=== PATIENT | male | born 1960 | race Hispanic/Latino ===

== ENCOUNTER 2018-10-10 15:04 | Inpatient (IN) | payer MEDICARE, OTHER ==
[~2018-10-10] VITALS: Ht 172.7 cm; Wt 66.9 kg
[2018-10-10] MEDS ORDERED: SODIUM CHLORIDE 0.9% 1000ML 1,000 ML IV SCH ×2 (15:15→16:30)
[2018-10-10] MEDS ORDERED: INSULIN REGULAR, HUMAN 100 UNIT/1 ML 3ML VIAL SQ NR (15:30)
[2018-10-10 15:32] LABS: BASOPHILS % 0.2 % (0.0-1.0); EOSINOPHILS # (AUTO) 0.1 (0.0-0.4); EOSINOPHILS % 0.6 % (0.0-6.0); HEMATOCRIT 34.2 % (38.2-49.6); HEMOGLOBIN 11.5 g/dL (14.0-18.0); LYMPHOCYTES % 5.9 % (18.0-39.1); MEAN CORPUSCULAR HEMOGLOBIN 28.7 pg (28-32); MEAN CORPUSCULAR HGB CONC 33.6 g/dL (31-35); MEAN CORPUSCULAR VOLUME 85.3 fL (81-99); MONOCYTES # (AUTO) 0.7 (0.2-0.8); MONOCYTES % 4.3 % (4.4-11.3); NEUTROPHILS # (AUTO) 15.1 (2.1-6.9); NEUTROPHILS % 87.9 % (38.7-80.0); PLATELET COUNT 399 x10e3/uL (140-360); RED BLOOD COUNT 4.01 x10e6/uL (4.3-5.7); RED CELL DISTRIBUTION WIDTH 13.2 % (11.7-14.4)
[2018-10-10 15:49] LABS: ALANINE AMINOTRANSFERASE 10 IU/L (0-55); ALBUMIN/GLOBULIN RATIO 0.7 (0.8-2.0); ALKALINE PHOSPHATASE 127 IU/L (40-150); ANION GAP 16.5 mmol/L (8-16); BLOOD UREA NITROGEN 21 mg/dL (7-26); BUN/CREATININE RATIO 19 (6-25); CALCIUM 8.5 mg/dL (8.4-10.2); CARBON DIOXIDE 22 mmol/L (22-29); CHLORIDE 95 mmol/L (98-107); CREATININE, SERUM 1.12 mg/dL (0.72-1.25); EST GLOMERULAR FILTRATION RATE > 60 ML/MIN (60-); GLUCOSE 399 mg/dL (74-118); POTASSIUM 4.5 mmol/L (3.5-5.1); SODIUM 129 mmol/L (136-145)
[2018-10-10 15:51] LABS: INFLUENZAE A&B ANTIGEN (RAPID) NEGATIVE (NEGATIVE)
[2018-10-10 16:16] LABS: BILIRUBIN,URINE NEGATIVE (NEGATIVE); CLARITY,URINE SL CLOUDY (CLEAR); COLOR,URINE YELLOW (YELLOW); KETONES,URINE NEGATIVE (NEGATIVE); LEUKOCYTE ESTERASE ,URINE NEGATIVE (NEGATIVE); NITRITE,URINE NEGATIVE (NEGATIVE); PROTEIN,URINE DIPSTICK 1+ (NEGATIVE); URINE UROBILINOGEN 0.2 mg/dL (0.2 - 1)
[2018-10-10] MEDS ORDERED: VANCOMYCIN 1GM/NS 250 ML 250 ML IV STA (16:18)
[2018-10-10 16:20] LABS: STREPTOCOCCUS GRP A ANTIGEN NEGATIVE (NEGATIVE)
[2018-10-10 16:26] LABS: BACTERIA,URINE MODERATE /HPF
[2018-10-10 16:27] LABS: EPITHELIAL CELLS,URINE RARE /LPF
--- NOTE | 2018-10-10 16:30 | NUR ---
PT REC'D FROM [facility] FOR FEVER/LEG PAIN. PLACED ON THE MONITOR AND VITALS TAKEN. FAMILY IN ROOM AT [facility]
[2018-10-10] MEDS ORDERED: DEXTROSE 50% SYRINGE 50 ML IV PRN (16:45)
[2018-10-10] MEDS: PIPER-TAZ 3.375 GM 50 ML IV NR ×2 (16:50→16:51)
[2018-10-10] MEDS: PIPER-TAZ 3.375 GM 50 ML IV SCH (16:50)
[2018-10-10] MEDS: INSULIN REGULAR, HUMAN 100 UNIT/1 ML 3ML VIAL SQ SCH (16:50)
--- NOTE | 2018-10-10 16:50 | NUR ---
MEDS GIVEN PER DR'S ORDERS AND PT HAS TOLERATED WELL
--- NOTE | 2018-10-10 16:55 | Diagnostic Imaging Report ---
EXAM: CHEST SINGLE (PORTABLE), AP Portable DATE: 10/10/2018 3:11 PM Time stamp on exam: 4:14 PM INDICATION: Fever COMPARISON: None FINDINGS: LINES/TUBES: None LUNGS: No consolidations or edema. Bibasilar atelectasis. PLEURA: No effusions or pneumothorax. HEART AND MEDIASTINUM: Normal size and contour. BONES AND SOFT TISSUES: No acute findings. Degenerative changes of the spine. IMPRESSION: No acute thoracic abnormality. Signed by: Dr. Samy Fan DO on 10/10/2018 4:52 PM
[2018-10-10] MEDS ORDERED: SODIUM CHLORIDE 0.9% 250ML 250 ML ONE (17:10)
[2018-10-10] MEDS: MORPHINE SULFATE INJ 4 MG/ML INJ IV PRN ×2 (17:19→22:02)
[2018-10-10] MEDS: ONDANSETRON HCL INJ 2 MG/ML VIAL IV PRN ×2 (17:19→22:03)
[2018-10-10] MEDS: SODIUM CHLORIDE 0.9% 1000ML 1,000 ML IV SCH (17:19)
--- NOTE | 2018-10-10 17:25 | NUR ---
MEDS GIVEN PER DR'S ORDERS AND PT HAS TOLERATED WELL
--- NOTE | 2018-10-10 19:13 | NUR ---
PT UPDATED ON PENDING ADMIT TO HOSPITAL. FAMILY AT SIDE
--- NOTE | 2018-10-10 20:18 | NUR ---
PT REQUESTING MORE PAIN MEDICATION, BUT NOT QUITE DUE YET.
--- NOTE | 2018-10-10 20:25 | NUR ---
PT REPORTS NO HOME MEDS
--- NOTE | 2018-10-10 20:31 | NUR ---
PT UPDATED ON PENDING ROOM ASSIGNMENT TO [facility]
--- NOTE | 2018-10-10 22:03 | NUR ---
pain medciation given per dr's orders.
--- NOTE | 2018-10-10 22:12 | NUR ---
nurse unavailable for report
--- NOTE | 2018-10-10 22:37 | NUR ---
REPORT CALLED TO SAGAR FOR THIS PT. TO GO TO RM 187
[2018-10-10 23:24] VITALS: BP 147/72
[2018-10-10 23:25] VITALS: BP 147/72
[2018-10-10 23:40] VITALS: BP 147/72
[2018-10-11] MEDS: MORPHINE SULFATE INJ 4 MG/ML INJ IV PRN ×3 (02:18→11:14)
[2018-10-11] MEDS: ONDANSETRON HCL INJ 2 MG/ML VIAL IV PRN ×2 (02:18→06:10)
[2018-10-11] MEDS: SODIUM CHLORIDE 0.9% 1000ML 1,000 ML IV SCH ×2 (02:22→11:02)
[2018-10-11] MEDS: VANCOMYCIN 1GM/NS 250 ML 250 ML IV SCH ×2 (03:38→16:57)
[2018-10-11 04:00] VITALS: BP 128/70
[2018-10-11 04:53] LABS: BASOPHILS # (AUTO) 0.1 (0.0-0.1); BASOPHILS % 0.3 % (0.0-1.0); EOSINOPHILS # (AUTO) 0.2 (0.0-0.4); EOSINOPHILS % 0.9 % (0.0-6.0); HEMOGLOBIN 9.5 g/dL (14.0-18.0); LYMPHOCYTES # (AUTO) 1.5 (1.0-3.2); LYMPHOCYTES % 8.4 % (18.0-39.1); MEAN CORPUSCULAR HEMOGLOBIN 28.1 pg (28-32); MEAN CORPUSCULAR HGB CONC 32.8 g/dL (31-35); MEAN CORPUSCULAR VOLUME 85.8 fL (81-99); MONOCYTES # (AUTO) 1.2 (0.2-0.8); MONOCYTES % 6.6 % (4.4-11.3); NEUTROPHILS # (AUTO) 15.2 (2.1-6.9); NEUTROPHILS % 82.9 % (38.7-80.0); PLATELET COUNT 340 x10e3/uL (140-360); RED BLOOD COUNT 3.38 x10e6/uL (4.3-5.7); RED CELL DISTRIBUTION WIDTH 13.2 % (11.7-14.4)
[2018-10-11 05:15] LABS: BLOOD UREA NITROGEN 16 mg/dL (7-26); BUN/CREATININE RATIO 17 (6-25); CALCIUM 7.7 mg/dL (8.4-10.2); CARBON DIOXIDE 22 mmol/L (22-29); CHLORIDE 101 mmol/L (98-107); CREATININE, SERUM 0.92 mg/dL (0.72-1.25); EST GLOMERULAR FILTRATION RATE > 60 ML/MIN (60-); GLUCOSE 184 mg/dL (74-118); SODIUM 132 mmol/L (136-145)
[2018-10-11] MEDS: PIPER-TAZ 3.375 GM 50 ML IV SCH ×3 (05:30→21:36)
--- NOTE | 2018-10-11 07:02 | NUR ---
Bedside report given to Mary HARMON. Pt is awake in bed, resting comfortably. No signs of acute distress.
[2018-10-11 07:30] VITALS: BP 126/71
[2018-10-11] MEDS: INSULIN REGULAR, HUMAN 100 UNIT/1 ML 3ML VIAL SQ SCH ×4 (07:30→21:36)
[2018-10-11] MEDS ORDERED: SEVOFLURANE INHAL SOLN 250 ML PEN BTL ONE (11:51)
[2018-10-11] MEDS ORDERED: PROPOFOL IV EMULSION 10 MG/ML 20 ML VIAL ONE (11:51)
[2018-10-11] MEDS ORDERED: LIDOCAINE HCL 2% LOCAL INJ 5 ML SDV VIAL INJ ONE (11:51)
[2018-10-11 12:00] VITALS: BP 114/73
--- NOTE | 2018-10-11 12:45 | NUR ---
Pt is alert and oriented x 4. Sister Sheyla Beatty [phone] at bedside. Brother Devan Bhardwaj is additional emergency contact [phone]. Pt lives alone in [place] in a house. Currently staying here with his sister. Pt has crutches that he uses. Pt able to drive. Requires assistance with some ADLs due to having difficulty getting around with crutches. Recently had left BKA 4 months ago. Asking about getting a prosthesis with his insurance. CM gave information to pt on [facility] [facility] and [facility]. Informed him that they are closed on the weekend. Pt and sister also asking about a PCP. Gave them information about [facility]. Sheyla stated she will call on Saturday and get an appointment with them so she can start filling out paperwork for assistance. Goal is for pt to return home on discharge. Family will provide transportation.
[2018-10-11] MEDS ORDERED: DEXTROSE 50% SYRINGE 50 ML IV PRN (14:15)
[2018-10-11] MEDS ORDERED: ACETAMINOPHEN 325 MG TAB PO PRN (14:15)
[2018-10-11] MEDS ORDERED: HYDROCODONE/APAP 5MG-325MG TAB PO PRN (14:15)
--- NOTE | 2018-10-11 14:16 | NUR ---
Dr. Farmer called for ID consult by RAMÓN Schmitz and she spoke to Edie.
[2018-10-11] MEDS: MORPHINE SULFATE 2 MG/ML SYR IV PRN (15:30)
--- NOTE | 2018-10-11 15:55 | History and Physical ---
DATE OF SERVICE: October 11, 2018 CHIEF COMPLAINT: Right buttock abscess. HPI: This is a 58-year-old male with known history of type 2 diabetes uncontrolled, left BKA, who is very active, who comes in with complaints of right buttock pain that was a collecting abscess. Patient reports it has been ongoing for the last 3 or 4 days. He has had history of abscesses in the past. He also reports having subjective fevers at home. Denies any chest pain, palpitation, nausea, or vomiting. Patient already had a status post incision and drainage that was performed today early this morning by general surgery. Patient seen and evaluated at bedside, currently doing well with no other complaints. REVIEW OF SYSTEMS PERTINENT POSITIVE: Right buttock abscess with pain. PERTINENT NEGATIVE: Denies any chest pain, palpitation, nausea, vomiting, diarrhea, dysuria, hematuria, frequency, urgency, lightheadedness, dizziness, abdominal pain, headache, shortness of breath, cough, congestion, fever, or any other complaints. The rest of the 14-point review of systems are reviewed with the patient and are negative. ALLERGIES: SULFA. HOME MEDICATIONS: Currently none. PAST MEDICAL HISTORY: Type 2 diabetes, uncontrolled; left BKA; medical noncompliance. PAST SURGICAL HISTORY: Left BKA. PAST FAMILY HISTORY: No reports of CAD. Father had hypertension and diabetes. SOCIAL HISTORY: No drugs. No alcohol. Does not smoke. Good social support. VITAL SIGNS: Temperature is 98.6, T-max is 100.4, his pulse is 82, respiratory rate is 18, blood pressure is 104/66, pulse ox 99%, and he is on nasal cannula. LAB FINDINGS: Show white count is 18.2, hemoglobin 9.5, hematocrit is 29, his platelets are 340. Chemistries; sodium 132, potassium 4, chloride 101, bicarb 22, anion gap of 13, BUN 16, creatinine is 0.92, glucose is 186, calcium is 7.7, albumin was 3. LFTs were normal. Urinalysis concerning for underlying UTI. Influenza; negative group B strep, group A strep was negative. MICROBIOLOGY: Blood culture is pending. Throat cultures was normal silvana. Urine cultures, no growth and wound culture of the right buttock is pending. IMAGING STUDIES: Chest x-ray found to be negative. PHYSICAL EXAMINATION GENERAL: In no acute distress, alert and oriented x3, cooperative on examination. HEENT: Head: Normocephalic, atraumatic. Eyes: Pupils are equal, round and reactive to light bilaterally. Extraocular movements are intact bilaterally. NECK: Supple with good range of motion. THROAT: No evidence of any erythema or exudate in the posterior pharynx. Has poor dentition. PULMONARY: Clear to auscultation bilaterally. No wheezes, no rales, no rhonchi, no crackles appreciated. CARDIOVASCULAR: Positive S1, S2. No murmurs, rubs, or gallops appreciated. ABDOMEN: Soft, nondistended, nontender to palpation. Bowel sounds present. MUSCULOSKELETAL: Strength is 5/5 throughout. No evidence of any musculoskeletal deficit on examination. No weakness appreciated. NEUROLOGIC: Cranial nerves II through XII are grossly intact. No evidence of any neurological deficit on exam. SKIN: Intact. Warm to touch. Good cap refill. PSYCHIATRIC: Normal affect and mood. EXTREMITIES: No edema. Good range of motion throughout. IMPRESSION 1. Sepsis due to underlying right buttock abscess, status post incision and drainage. 2. Uncontrolled type 2 diabetes. 3. Left below knee amputation. 4. Medical noncompliance. 5. Medically debilitated. PLAN: Patient has already had status post incision and drainage. It was performed by Dr. Robison, general surgery. Will continue with daily wound packing. Monitor wound culture. Continue with IV antibiotics. ID consulted as well. Will get a.m. labs including A1c, lipid panel, CBC, BMP, and TSH. Continue with insulin sliding scale and Accu-Cheks. Get a hemoglobin A1c. Patient is on Lovenox for DVT prophylaxis. Will continue with same plan of care. Patient verbalized understanding and agrees with plan of care. Job#: [id number] LUZ MARIA
[2018-10-11 16:00] VITALS: BP 127/80
[2018-10-11] MEDS: ENOXAPARIN SOD INJ 40 MG/0.4 ML SYR SC SCH (16:57)
--- NOTE | 2018-10-11 17:57 | Consultation ---
DATE OF CONSULTATION: REASON FOR CONSULTATION: Abscess to the buttock area. HISTORY OF PRESENT ILLNESS: This patient is a very pleasant male with history of diabetes mellitus, hypertension, comes in with redness and swelling on his right buttock area. There is no specific trauma that he can think of. The patient does have pain. He came to the emergency room where he was admitted, started on vancomycin and Zosyn, underwent I and D earlier today. Infectious disease was consulted. The patient is currently lying in bed comfortably now. Has no complaints. He denies any fever or chills. PAST MEDICAL HISTORY: Diabetes mellitus, hypertension. PAST SURGICAL HISTORY: Denies. ALLERGIES: SULFA DRUGS. SOCIAL HISTORY: There is no smoking, drug abuse, or alcohol abuse. FAMILY HISTORY: Diabetes mellitus. REVIEW OF SYSTEMS GENERAL: At present time, he is doing well. No fever, no chills, although he had fever when he first came. HEENT: Negative. PULMONARY: Negative. CARDIAC: Negative. : Negative. SKIN: There are no other rashes or within normal limits. PHYSICAL EXAMINATION GENERAL: He is currently alert, oriented, does not seem to be in acute distress. VITAL SIGNS: Stable. Currently afebrile. HEENT: Does not appear icteric. NECK: Supple. CHEST: Clear. HEART: S1, S2. No S3 or S4. No murmur. ABDOMEN: Soft. Bowel sounds present. No tenderness. EXTREMITIES: In the buttock area, there is some induration and redness. There is incision, which is packed and no evidence to suggest a bloody drainage. IMPRESSION: Abscess, gram-positive cocci, on vancomycin and Zosyn. Continue for now. We will modify after the sensitivity is available. Further recommendations to follow. Job#: [id number] VAS
[2018-10-11 20:00] VITALS: BP 95/55
[2018-10-11 21:30] VITALS: BP 127/77
[2018-10-12] VITALS (8 sets, daily range): BP systolic 99–167; BP diastolic 52–96
[2018-10-12] MEDS: VANCOMYCIN 1GM/NS 250 ML 250 ML IV SCH ×2 (04:02→16:00)
[2018-10-12 04:39] LABS: BASOPHILS % 0.2 % (0.0-1.0); EOSINOPHILS # (AUTO) 0.3 (0.0-0.4); EOSINOPHILS % 2.5 % (0.0-6.0); HEMATOCRIT 26.6 % (38.2-49.6); HEMOGLOBIN 8.8 g/dL (14.0-18.0); LYMPHOCYTES # (AUTO) 1.7 (1.0-3.2); LYMPHOCYTES % 13.3 % (18.0-39.1); MEAN CORPUSCULAR HEMOGLOBIN 28.3 pg (28-32); MEAN CORPUSCULAR HGB CONC 33.1 g/dL (31-35); MEAN CORPUSCULAR VOLUME 85.5 fL (81-99); MONOCYTES # (AUTO) 0.8 (0.2-0.8); MONOCYTES % 6.7 % (4.4-11.3); NEUTROPHILS # (AUTO) 9.5 (2.1-6.9); NEUTROPHILS % 76.2 % (38.7-80.0); PLATELET COUNT 331 x10e3/uL (140-360); RED BLOOD COUNT 3.11 x10e6/uL (4.3-5.7); RED CELL DISTRIBUTION WIDTH 13.4 % (11.7-14.4)
[2018-10-12 04:58] LABS: ANION GAP 13.9 mmol/L (8-16); BLOOD UREA NITROGEN 16 mg/dL (7-26); BUN/CREATININE RATIO 15 (6-25); CALCIUM 7.6 mg/dL (8.4-10.2); CARBON DIOXIDE 22 mmol/L (22-29); CHLORIDE 103 mmol/L (98-107); CREATININE, SERUM 1.04 mg/dL (0.72-1.25); EST GLOMERULAR FILTRATION RATE > 60 ML/MIN (60-); GLUCOSE 122 mg/dL (74-118); POTASSIUM 3.9 mmol/L (3.5-5.1); SODIUM 135 mmol/L (136-145)
[2018-10-12] MEDS: MORPHINE SULFATE 2 MG/ML SYR IV PRN (05:10)
[2018-10-12 05:14] LABS: CHOL/HDL RATIO 5.3 (3.9-4.7)
[2018-10-12 05:35] LABS: THYROID STIMULATING HORMONE 1.326 uIU/mL (0.350-4.940)
[2018-10-12] MEDS: PIPER-TAZ 3.375 GM 50 ML IV SCH ×3 (06:41→21:59)
[2018-10-12] MEDS: INSULIN REGULAR, HUMAN 100 UNIT/1 ML 3ML VIAL SQ SCH ×4 (08:25→20:43)
--- NOTE | 2018-10-12 08:48 | NUR ---
patient rude and insulting to kitchen staff, states he does not want to eat and they should not deliver any trays all day, kitchen offered multiple choices for breakfast, but patient still refuses to eat, patient very rude and refusing any other offers, informed patient on the importance of nutrition and insulin, patient states "then I dont want my insulin" informed patient I will notify
--- NOTE | 2018-10-12 14:15 | NUR ---
RCD PT FROM IMCU BY WHEEL CHAIR PT IS ALERT AND ORIENTED RESTING ON BED VITALS CHECKED DRESSING CHANGED ON THE RT BUTTOCKS BED LOW AND LOCKED CALL LIGHT IN REACH
--- NOTE | 2018-10-12 15:15 | Progress Note ---
DATE: October 12, 2018 MEDICINE PROGRESS NOTE SUBJECTIVE: Patient is doing with no issues. He refused his insulin this morning because he reports that his food did not taste well and portions were small. LABORATORY FINDINGS: Show white count 12.4, hemoglobin 9.8, hematocrit 26.6, platelets of 331. Sodium was 135, potassium is 3.9, chloride is 103, bicarb is 22, anion gap of 13.8, creatinine is 1, glucose is 119. Hemoglobin A1c is 9.9. Lactic acid normal at 6.9. LDL 56, TSH 4.3. MICROBIOLOGY: Wound cultures shows Staphylococcus aureus. Urine culture negative. Blood culture, no growth today 24 hours. IMAGING STUDIES: None. PHYSICAL EXAMINATION VITAL SIGNS: Temperature is 98.3, pulse 75, respiratory rate is 20, blood pressure is 151/87, pulse ox is 98% on room air. GENERAL: Not in acute distress, alert and oriented x3, cooperative on examination. HEENT: Head: Normocephalic, atraumatic. Eyes: Pupils are equal, round, and reactive to light bilaterally. Extraocular movements are intact bilaterally. Throat: No evidence of any erythema or exudates in the posterior pharynx. Has poor dentition. NECK: Supple with good range of motion. PULMONARY: Clear to auscultation bilaterally. No wheezing, no rales, no rhonchi, no crackles appreciated. CARDIOVASCULAR: Positive S1, S2. No murmurs, rubs, or gallops appreciated. ABDOMEN: Soft, nondistended, nontender to palpation. Bowel sounds present. MUSCULOSKELETAL: Strength is 5/5 throughout. No evidence of any musculoskeletal deficit on examination. No weakness appreciated. NEUROLOGIC: Cranial nerves II through XII are grossly intact. No evidence of any neurological deficit on exam. SKIN: Intact. Warm to touch. Good capillary refill. PSYCHIATRIC: Normal affect and mood. EXTREMITIES: No edema. Good range of motion throughout. IMPRESSION 1. Sepsis due to underlying right buttock abscess, status post incision and drainage with much improved white count. 2. Uncontrolled type 2 diabetes. 3. Left offws-nyb-jrtm amputation. 4. Medical noncompliance. 5. Medically debilitated. PLAN: This morning he refused his insulin as he reports that the food did not look good and he returned it back. He did eat lunch though. At this time, we will continue with IV antibiotics and await final wound culture growth, currently shows Staphylococcus aureus, but we would like to get the sensitivities. His hemoglobin A1c is elevated at 9.9. He will continue with subcutaneous insulin. I discussed this with him thoroughly at bedside. He is currently on Lovenox for DVT prophylaxis. Will continue with same plan of care for now until we are able to get the final regimen of the oral antibiotic for discharge as well as arrange for wound care by case management. Job#: [id number] ALICIA
[2018-10-12] MEDS ORDERED: SODIUM CHLORIDE 0.9% 250ML 250 ML ONE (15:40)
[2018-10-12] MEDS: ENOXAPARIN SOD INJ 40 MG/0.4 ML SYR SC SCH (16:20)
--- NOTE | 2018-10-12 17:45 | NUR ---
HE ATE THE DINNER 100%
--- NOTE | 2018-10-12 19:01 | NUR ---
PT RESTING ON BED BED SIDE REPORT GIVEN TO ONCOMING NURSE
[2018-10-13] VITALS (9 sets, daily range): BP systolic 116–181; BP diastolic 61–99
[2018-10-13] MEDS: VANCOMYCIN 1GM/NS 250 ML 250 ML IV SCH ×2 (03:55→17:50)
[2018-10-13 04:40] LABS: BASOPHILS % 0.5 % (0.0-1.0); EOSINOPHILS # (AUTO) 0.2 (0.0-0.4); EOSINOPHILS % 2.9 % (0.0-6.0); HEMATOCRIT 28.4 % (38.2-49.6); HEMOGLOBIN 9.4 g/dL (14.0-18.0); LYMPHOCYTES # (AUTO) 1.4 (1.0-3.2); LYMPHOCYTES % 17.4 % (18.0-39.1); MEAN CORPUSCULAR HEMOGLOBIN 28.1 pg (28-32); MEAN CORPUSCULAR HGB CONC 33.1 g/dL (31-35); MONOCYTES # (AUTO) 0.6 (0.2-0.8); MONOCYTES % 7.7 % (4.4-11.3); NEUTROPHILS # (AUTO) 5.5 (2.1-6.9); NEUTROPHILS % 70.6 % (38.7-80.0); PLATELET COUNT 386 x10e3/uL (140-360); RED BLOOD COUNT 3.34 x10e6/uL (4.3-5.7); RED CELL DISTRIBUTION WIDTH 13.2 % (11.7-14.4)
[2018-10-13 05:00] LABS: ANION GAP 12.9 mmol/L (8-16); BLOOD UREA NITROGEN 14 mg/dL (7-26); BUN/CREATININE RATIO 14 (6-25); CALCIUM 8.6 mg/dL (8.4-10.2); CARBON DIOXIDE 22 mmol/L (22-29); CHLORIDE 105 mmol/L (98-107); EST GLOMERULAR FILTRATION RATE > 60 ML/MIN (60-); GLUCOSE 215 mg/dL (74-118); POTASSIUM 3.9 mmol/L (3.5-5.1); SODIUM 136 mmol/L (136-145)
[2018-10-13] MEDS: PIPER-TAZ 3.375 GM 50 ML IV SCH (05:47)
--- NOTE | 2018-10-13 07:13 | NUR ---
REPORT GIVEN TO ONCOMING NURSE,WALKING ROUNDS MADE.PT RESTING IN BED WITH NO S/S OF DISTRESS.
[2018-10-13] MEDS: INSULIN REGULAR, HUMAN 100 UNIT/1 ML 3ML VIAL SQ SCH ×4 (08:00→22:14)
--- NOTE | 2018-10-13 11:15 | NUR ---
Al with Dr. Farmer's office is here making rounds. He is aware that patient's wound culture is MRSA positive.
[2018-10-13] MEDS: MORPHINE SULFATE 2 MG/ML SYR IV PRN (14:42)
--- NOTE | 2018-10-13 14:51 | NUR ---
Removed packing from right buttock wound per MD order.
--- NOTE | 2018-10-13 15:02 | NUR ---
Cleaned right buttock wound with NS and covered with 4x4. patient denies needing anything else at this time, call light in reach
--- NOTE | 2018-10-13 16:32 | Progress Note ---
DATE: October 13, 2018 MEDICINE PROGRESS NOTE SUBJECTIVE: Patient is doing well today with no complaints. He is getting daily wound care and packing. He has no other issues at this time. VITAL SIGNS: Temperature 98.1, pulse 76, respiratory rate 18, blood pressure 156/83, pulse ox 96% on room air. LAB FINDINGS: White count 7.8, hemoglobin 9.4, hematocrit 28, platelets 386. MICROBIOLOGY: Wound culture consistent with MRSA. PHYSICAL EXAMINATION GENERAL: Not in acute distress, alert and oriented x3, cooperative on examination. HEENT: Head: Normocephalic, atraumatic. Eyes: Pupils are equal, round, and reactive to light bilaterally. Extraocular movements are intact bilaterally. NECK: Supple with good range of motion. THROAT: No evidence of any erythema or exudates in the posterior pharynx. Has poor dentition. PULMONARY: Clear to auscultation bilaterally. No wheezing, no rales, no rhonchi, no crackles appreciated. CARDIOVASCULAR: Positive S1, S2. No murmurs, rubs, or gallops. ABDOMEN: Soft, nondistended, nontender to palpation. Bowel sounds present. MUSCULOSKELETAL: Strength is 5/5 throughout. No evidence of any musculoskeletal deficit on examination. No weakness appreciated. NEUROLOGIC: Cranial nerves II through XII are grossly intact. No evidence of any neurological deficit on exam. SKIN: Intact. Warm to touch. Good capillary refill. PSYCHIATRIC: Normal affect and mood. EXTREMITIES: No edema. Good range of motion throughout. IMPRESSION 1. Sepsis due to underlying right buttock abscess, status post incision and drainage with much improved white count. 2. Uncontrolled type-2 diabetes. 3. Left erbgi-jub-meiv amputation. 4. Medical noncompliance. 5. Medically debilitated. PLAN: At this time, his wound culture is consistent with MRSA. I discussed it with ID. They recommend doxycycline for 2 total weeks. I am arranging home health with home wound care, and I discussed this with case management. Otherwise, the rest of his labs are stable. He is cleared for likely discharge tomorrow, once we have him set up with home health. Otherwise, we will continue the same plan of care. Job#: [id number]
[2018-10-13] MEDS: ENOXAPARIN SOD INJ 40 MG/0.4 ML SYR SC SCH ×2 (17:00→17:50)
--- NOTE | 2018-10-13 17:16 | NUR ---
Nutrition Screen Note RD Recommendation for Physician: -Continue ADA diet as medically appropriate Plan of Care: RD following, monitoring for tolerance and adequacy Nutrition reason for involvement: Nutrition Risk Trigger MST Primary Diagnose(s): Sepsis due to underlying right buttock abscess s/p I&D, uncontrolled Type 2 DM, PMH: L BKA amputation, medical noncompliance, DM Ht: 68in Wt: 153.31lb BMI: 23.3kg/m2 IBW: 154lb RD Assessment: (10/13) Chart reviewed. Labs and meds reviewed. 58yo unpleasant M who is admitted for R buttock abscess. During my assessment, pt was rude and complained about how much he didnt like the food here. Kitchen staff had called several times offering multiple choices for meals. However, pt is still being very rude and complaining that he doesnt get enough foods. Per chart, RN recorded 75-100% meal intake today. No change of appetite or PO intake DOUBLE BACKER reported. No recent weight loss noted. Pt denies any chewing or swallowing difficulty. Pt was getting angry when asked if he follow a diabetic diet at home. Pt doesnt understand why he is getting diabetic meal trays at the hospital. No diet education provided at this time as pt was getting frustrated and didnt want to speak to me anymore. Will continue to monitor and follow. Current Diet: ADA diet Malnutrition Evaluation (10/13) The patient does not meet criteria for a specified degree of malnutrition at this time. Will re-evaluate at follow-up as appropriate. Diet Education Needs Assessment: Diet education indicated, pt is not appropriate at this time. Nutrition Care Level: low Signed: Gisell Garnett, MS, RD, LD
[2018-10-13] MEDS ORDERED: MIDAZOLAM HCL 2 MG/2 ML VIAL ONE (18:57)
[2018-10-13] MEDS ORDERED: FENTANYL CITRATE/PF 100MCG/2 ML INJ ONE (18:57)
--- NOTE | 2018-10-13 19:10 | NUR ---
Received patient awake on bed, with dressing to the right buttock moderately soaked, patient is fixing to take a shower and will redress wound after shower, patient understood. Call light within reached, advised to call for assistance when needed. No complaints of pain at this time. Will continue to monitor.
[2018-10-14] VITALS (8 sets, daily range): BP systolic 128–190; BP diastolic 65–97
[2018-10-14] MEDS: VANCOMYCIN 1GM/NS 250 ML 250 ML IV SCH ×2 (04:15→17:03)
[2018-10-14] MEDS: MORPHINE SULFATE 2 MG/ML SYR IV PRN (05:55)
[2018-10-14] MEDS: INSULIN REGULAR, HUMAN 100 UNIT/1 ML 3ML VIAL SQ SCH ×4 (08:30→21:00)
--- NOTE | 2018-10-14 12:39 | NUR ---
Received order for home health for wound care. CM called multiple companies and found 1 that takes pt's insurance - [facility]. CM spoke with pt at bedside. He states that he will be going back to [place] on discharge. He cannot stay at his siblings' houses here in [place]. Plans to discharge from hospital and his family will take him to the bus stop and he will go back home. Pt stated that he can do his own wound care, stated that he has done it before. CM notified Dr. Voss. Pt also stated that he has an appointment with a new provider on October 27 that was set up thru his insurance. States he was in a the process of doing paperwork to get a prothesis in [place] but his MD dropped him when he changed insurance. States he knows the process to get that started again and will do that once he gets back home. His sister has information for prosthetics companies here in [facility]. Gave pt CM contact information for any questions/concerns.
[2018-10-14] MEDS ORDERED: HYDRALAZINE HCL 20 MG/ML VIAL IV NR (16:00)
--- NOTE | 2018-10-14 16:00 | NUR ---
Patient's BP is 190/[address] Voss. Will give IV Hydralazine and recheck BP
--- NOTE | 2018-10-14 16:13 | Discharge Summary ---
FINAL DISCHARGE DIAGNOSES 1. Sepsis due to underlying right buttock abscess status post incision and drainage with much improvement. 2. Uncontrolled type 2 diabetes. 3. Left lpcyn-yfh-egtz amputation. 4. Medical noncompliance. 5. Medically debilitated. CONSULTANTS 1. General Surgery. 2. Infectious Disease. VITAL SIGNS: Temperature is 97.1, pulse 109, respiratory rate is 20, blood pressure 165/94, pulse ox 98% on room air. LAB FINDINGS: Show white count of 7.8, hemoglobin 9.4, hematocrit is 28.4. CHEMISTRY: Sodium 136, potassium is 3.9, chloride is 105, bicarb is 22, anion gap of 12, BUN 14, creatinine is 1. His LDL was 56. Albumin was 3. His LFTs were normal. TSH was 1.3. Urinalysis negative. MICROBIOLOGY Wound cultures MRSA. Blood cultures no growth to date. Throat cultures negative. Urine culture negative. IMAGING STUDIES: Chest x-ray was negative. HOSPITAL COURSE: This is a 58-year-old male who came in with a right buttock abscess and treated for underlying sepsis. General Surgery and ID were consulted. Patient underwent incision and drainage of the abscess. Wound culture was consistent with MRSA. Patient was on IV antibiotics and will be discharged on oral doxycycline for 2 total weeks per ID recommendations. Patient was cleared by ID standpoint. General Surgery recommends wet-to-dry dressings. Patient refused home health and wants to go back to [place] to continue his medical care. Apparently after discharge he is going to take a bus and go back to [place]. Antibiotics were given to him including insulin and blood pressure medication lisinopril as well for discharge. Patient was advised to follow up with our local physicians for further management and care. On the day of discharge, vital signs stable, labs reviewed and stable. Patient seen and evaluated and examined thoroughly on the day of discharge with no new complaints. Patient verbalized understanding and agrees with plan of care, to follow up accordingly as an outpatient with the primary care physician in 1 week and the consultants as described above in 2 weeks' time. MEDICATIONS: See med reconciliation form including 1. Levemir 10 units subcutaneous at bedtime, 1 box given, 1 total month. 2. NovoLog 7 units subcutaneous t.i.d. with meals, 1 box, 1 month supply. 3. Doxycycline 100 mg p.o. b.i.d. for 14 total days. 4. Lisinopril 20 mg 1 tab daily. DISPOSITION: To home. CONDITION: Stable. DIET: Heart healthy, diabetic. In the event of any worsening symptoms, the patient advised to come back to the ED for further evaluation. Discharge summary took greater than 35 minutes. TUNDE MCKEON MD Job#: [id number] EV
[2018-10-14] MEDS: ENOXAPARIN SOD INJ 40 MG/0.4 ML SYR SC SCH (16:29)
--- NOTE | 2018-10-14 17:04 | NUR ---
Rechecked BP 172/97. Blood pressure is trending down, will reassess in 30 minutes
--- NOTE | 2018-10-14 17:45 | NUR ---
BP 171/87. Notified Dr. Voss. OK to continue with dc home.
[2018-10-14] MEDS ORDERED: LISINOPRIL 20 MG TAB PO NR (18:00)
[2018-10-14] MEDS ORDERED: LISINOPRIL10 MG PO (18:19)
[2018-10-14] MEDS ORDERED: DOXYCYCLINE HY100 MG PO (18:19)
[2018-10-14] MEDS ORDERED: LEVEMIR100 UNIT/1 SC (18:20)
[2018-10-14] MEDS ORDERED: NOVOLOG100 UNITS1 SQ (18:20)
--- NOTE | 2018-10-14 18:39 | NUR ---
Patient was given prescriptions and discharge instructions, he verbalized understanding. IV to right FA was removed with tip intact. Patient's family does not want to take him home or to the bus stop and is requesting that he take a taxi to the bus stop. Patient is also waiting on a few belongings. Will notify customs house broker/furnace charger
--- NOTE | 2018-10-14 19:00 | NUR ---
Received patient awake on bed,awaiting discharge, family refused to take the patient home, patient needs a cab to take him to the [facility] bus station to go back to [place] informed and will follow up. Explained to patient that once its arranged, I will let him know.
--- NOTE | 2018-10-14 20:00 | NUR ---
Patient missed the last trip to the bus station [facility] and preferred to stay until 6AM, taxi service arranged by [place], will inform Dr. Voss
--- NOTE | 2018-10-14 20:20 | NUR ---
Spoke to Dr. Voss and made aware of the above events. Patient can stay until 6AM tomorrow and continue care.
[2018-10-15] VITALS: BP 128/73
[2018-10-15] MEDS: VANCOMYCIN 1GM/NS 250 ML 250 ML IV SCH (03:36)
[2018-10-15 04:00] VITALS: BP 155/85
--- NOTE | 2018-10-15 05:45 | NUR ---
Patient was discharged home in good and stable condition, accompanied by PCT to the ER via taxi.
--- NOTE | 2018-10-15 16:37 | Discharge Summary ---
ADDENDUM: Patient was supposed to leave on yesterday on October 14, 2018, but instead left on October 15, 2018, due to transportation issues. Patient was kept overnight. He did well. His temperature was 96.4, pulse 80, respiratory rate is 19, blood pressure 165/80, pulse ox 94% on room air. Patient was cleared for discharge home. He left early this morning around 7 a.m. I discussed the case with the nursing staff. This is an addendum to the discharge summary that was performed on October 14, 2018, and the discharge is now October 15, 2018. This will be the entire discharge summary. TUNDE MCKEON MD Job#: [id number] EV
--- NOTE | 2018-11-27 18:51 | Operative Report ---
DATE OF PROCEDURE: October 11, 2018 PREOPERATIVE DIAGNOSIS: Right posterior thigh abscess. POSTOPERATIVE DIAGNOSIS: Right posterior thigh abscess. OPERATIVE PROCEDURE: Incisional drainage of right posterior thigh abscess. ANESTHESIA: General. INDICATIONS: This patient is a 58-year-old male with history of a right posterior thigh abscess of several days. Patient had consented for drainage under anesthesia with the attendant risks discussed. DESCRIPTION OF PROCEDURE: The patient was brought to the OR and placed in the left lateral decubitus position with the right side up. The right posterior thigh was then prepped and draped in sterile fashion. A cruciate incision was made on the roof of the abscess extending into the cavity, revealing a large amount of purulent material. The opening in the abscess roof was enlarged to allow digital exploration of the cavity and to break up all loculations. We then used a swab specimen for culture and sensitivity. Irrigation was then carried out, and the wound was then packed with iodoform gauze. Hemostasis achieved. Dressing applied. Patient tolerated procedure well. Job#: [id number] GAURI
== END 2018-10-15 05:45 | disposition home or self-care (01) | DRG 872 ==
LOC: ER 15:04 → ERHOLD 16:41 → IMCU 22:46 → MED/SURG2 10-12 14:17
PROVIDERS: ADMIT Internal Medicine; ATTEND Internal Medicine
PROC: 0Y9 Anatomical Regions, Lower Extremities, Drainage (ICD-10-PCS; principal; 2018-10-11 08:30)
DX: A41.9 Sepsis, unspecified organism (principal); L02.415 Cutaneous abscess of right lower limb; L02.31 Cutaneous abscess of buttock; E11.65 Type 2 diabetes mellitus with hyperglycemia; I10 Essential (primary) hypertension; Z89.512 Acquired absence of left leg below knee; Z91.19 Patient's noncompliance with other medical treatment and regimen; R53.81 Other malaise; B95.62 Methicillin resistant Staphylococcus aureus infection as the cause of diseases classified elsewhere; Z88.2 Allergy status to sulfonamides; Z79.4 Long term (current) use of insulin
CPT/HCPCS: 36415; 71045; 80048; 80053; 80061; 80202; 81001; 82948; 83036; 83518; 83605; 84443; 85025; 87040; 87070; 87071; 87075; 87086; 87186; 87205; 87400; 93005; 96372; 99284; J0360; J1650; J2001; J2250; J2270; J2405; J2543; J3370; J7030; J7050